=== PATIENT | male | born 1995 | race Caucasian/White ===

== ENCOUNTER 2023-10-31 12:18 | Emergency (ER) | payer SELFPAY ==
[2023-10-31] MEDS: Tetracaine HCl/PF 0.5% 4 ML Bottle EYEBOTH STA (12:55)
[2023-10-31 13:45] LABS: CORONAVIRUS COVID-19 NAA NEGATIVE (NEGATIVE); INFLUENZA A NAA NEGATIVE (NEGATIVE); INFLUENZA B NAA NEGATIVE (NEGATIVE); RESPIRATORY SYNCYTIAL VIR NAA NEGATIVE (NEGATIVE)
== END 2023-10-31 14:07 | disposition home or self-care (01) ==
LOC: MW.ED 12:18
DX: H10.9 Unspecified conjunctivitis (principal); Z86.16 Personal history of COVID-19; Z79.899 Other long term (current) drug therapy
CPT/HCPCS: 0241U; 99283; J3490

== ENCOUNTER 2023-12-30 15:59 | Emergency (ER) | payer SELFPAY | END 2023-12-30 17:17 | disposition home or self-care (01) | LOC: MW.ED 15:59 | DX: S30.0XXA Contusion of lower back and pelvis, initial encounter (principal); Z75.8 Other problems related to medical facilities and other health care; Z86.16 Personal history of COVID-19; W13.2XXA Fall from, out of or through roof, initial encounter | CPT/HCPCS: 99283 ==